=== PATIENT | male | born 1985 | race Caucasian/White ===

== ENCOUNTER 2020-06-05 17:16 | Emergency (ER) | payer BC, OTHER ==
[2020-06-05] MEDS ORDERED: Bacitracin Oint 15 GM Tube TOP ONE (18:16)
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
== END 2020-06-05 18:58 | disposition home or self-care (01) ==
LOC: JD.ED 17:16
DX: T23.191A Burn of first degree of multiple sites of right wrist and hand, initial encounter (principal); Z87.891 Personal history of nicotine dependence; X08.8XXA Exposure to other specified smoke, fire and flames, initial encounter
CPT/HCPCS: 99283; A9270; 99282

== ENCOUNTER 2020-09-02 18:52 | Emergency (ER) | payer OTHER ==
--- NOTE | 2020-09-02 19:39 | EDM.PDOC ---
ED HPI GENERAL MEDICAL PROBLEM - General Chief Complaint: Abdominal Pain Stated Complaint: PAIN MOVES FROM LOWER RIBS UP CHEST INTO SHOULDER Time Seen by Provider: 09/02/20 19:17 Source of Information: Reports: Patient History Limitations: Reports: No Limitations - History of Present Illness INITIAL COMMENTS - FREE TEXT/NARRATIVE: This is a 35-year-old male. He has been having left shoulder and left arm pain for multiple days prior to his abdominal pain. He says when he tries to move his arm laterally he gets pain in his left anterior chest. 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 About 3 days ago he had onset of slight left-sided abdominal pain that is gotten worse and worse. He did have an episode of diarrhea tonight but no nausea or vomiting. He has a history of pancreatitis back in 2018. He says then the pain was midline not in the left side. He is not certain whether the abdominal pain is really needed to his left shoulder and left arm pain. He was Covid positive in the second week of May and did his appropriate quarantine and he is not having any of those symptoms. He denies any fever chills and no cough. Left Abdominal Pain Score (Numeric/FACES): 8 - Related Data Allergies Allergy/AdvReac Type Severity Reaction Status Date / Time No Known Allergies Allergy Verified 09/02/20 19:04 Home Meds: Home Meds Dicyclomine [Bentyl] 20 mg PO TID PRN #20 tab 09/03/20 [Rx] Hydrocodone/Acetaminophen [Hydrocodon-Acetaminophen 5-325] 1 each PO Q6H PRN #12 tablet 09/03/20 [Rx] Ondansetron [Zofran] 4 mg PO Q6H PRN #15 tab 09/03/20 [Rx] Past Medical History - Past Health History Medical/Surgical History: Denies Medical/Surgical History - Infectious Disease History Infectious Disease History: Reports: Novel Coronavirus Social & Family History - Family History Family Medical History: No Pertinent Family History - Tobacco Use Tobacco Use Status *Q: Current Every Day Tobacco User Years of Tobacco use: 14 Packs/Tins Daily: 1 Month/Year Tobacco Last Used: 10/2014 - Caffeine Use Caffeine Use: Reports: Coffee - Recreational Drug Use Recreational Drug Use: No ED ROS GENERAL - Review of Systems Review Of Systems: See Below Constitutional: Denies: Fever, Chills HEENT: Reports: No Symptoms Respiratory: Denies: Shortness of Breath, Cough Cardiovascular: Reports: Chest Pain Endocrine: Reports: No Symptoms GI/Abdominal: Reports: Abdominal Pain, Diarrhea. Denies: Nausea, Vomiting : Reports: No Symptoms Musculoskeletal: Reports: No Symptoms Skin: Reports: No Symptoms Neurological: Reports: No Symptoms Psychiatric: Reports: No Symptoms Hematologic/Lymphatic: Reports: No Symptoms ED EXAM, GI/ABD - Physical Exam Exam: See Below Exam Limited By: No Limitations General Appearance: Alert, WD/WN, No Apparent Distress Eyes: Bilateral: Normal Appearance Ears: Normal External Exam Nose: Other (The patient denies any acute symptoms) Throat/Mouth: Normal Voice, No Airway Compromise Head: Normocephalic Neck: Supple Respiratory/Chest: No Respiratory Distress, Lungs Clear, Normal Breath Sounds, Other (Your chest is not particularly tender on palpation, however he when he moves his left arm laterally he complains of pain in his left anterior chest and sometimes down his arm. No obvious abnormalities are noted.) Cardiovascular: Regular Rate, Rhythm, No Murmur GI/Abdominal Exam: Soft, Other (Is tender in the left upper quadrant area on palpation but I do not feel any masses. He does not have any peritoneal irritation noted or rebound. His midline and right upper quadrant are nontender and his lower abdomen is nontender and bowel sounds are decreased.) Back Exam: Normal Inspection, Full Range of Motion Extremities: Normal Inspection, Normal Range of Motion Neurological: Alert, Oriented Psychiatric: Normal Affect, Normal Mood Skin Exam: Warm, Dry #1 Interpretation EKG Date: 09/02/20 Time: 19:40 EKG Interpretation Comments: EKG shows a normal sinus rhythm rate of 61. There is no acute ST or T wave changes there is no ischemia noted. There is a suggestion that he is got an incomplete right bundle branch block and a left anterior fascicular block. Course - Vital Signs Last Recorded V/S: Last Vital Signs Temp 98.0 F 09/02/20 19:01 Pulse 66 09/02/20 20:30 Resp 18 09/02/20 19:01 BP 122/75 09/02/20 20:30 Pulse Ox 96 09/02/20 20:30 - Orders/Labs/Meds Orders: Active Orders 24 hr Category Date Time Status EKG 12 Lead [EKG Documentation Completion] [RC] STAT Care 09/02/20 19:29 Ac tive Abdomen 1V Flat [CR] Stat Exams 09/02/20 19:29 Taken Abdomen Pelvis w Cont [CT] Stat Exams 09/02/20 21:04 Taken CXR [Chest 1V Frontal] [CR] Stat Exams 09/02/20 19:29 Taken Sodium Chloride 0.9% [Normal Saline] 1,000 ml Med 09/02/20 21:15 Active IV ASDIRECTED Sodium Chloride 0.9% [Normal Saline] 100 ml Med 09/02/20 23:00 Active IV ASDIRECTED Medication Orders Sodium Chloride (Normal Saline) 1,000 mls @ 1,000 mls/hr IV ASDIRECTED DAVID Last Admin: 09/02/20 21:12 Dose: 1,000 mls/hr Documented by: SHREE Sodium Chloride (Normal Saline) 100 mls @ 60 mls/hr IV ASDIRECTED DAVID Last Admin: 09/02/20 23:00 Dose: 60 mls/hr Documented by: JANELLE Labs: Laboratory Tests 09/02/20 09/02/20 09/02/20 Range/Units 19:40 19:40 19:40 WBC 6.91 (4.23-9.07) K/mm3 RBC 4.67 (4.63-6.08) M/mm3 Hgb 14.1 (13.7-17.5) gm/dl Hct 42.2 (40.1-51.0) % MCV 90.4 (79.0-92.2) fl MCH 30.2 (25.7-32.2) pg MCHC 33.4 (32.2-35.5) g/dl RDW Std Deviation 42.6 (35.1-43.9) fL Plt Count 286 (163-337) K/mm3 MPV 10.8 (9.4-12.3) fl Neut % (Auto) 55.9 (34.0-67.9) % Lymph % (Auto) 32.7 (21.8-53.1) % [place] % (Auto) 8.4 (5.3-12.2) % Eos % (Auto) 2.5 (0.8-7.0) Baso % (Auto) 0.4 (0.1-1.2) % Neut # (Auto) 3.86 (1.78-5.38) K/mm3 Lymph # (Auto) 2.26 (1.32-3.57) K/mm3 [place] # (Auto) 0.58 (0.30-0.82) K/mm3 Eos # (Auto) 0.17 (0.04-0.54) K/mm3 Baso # (Auto) 0.03 (0.01-0.08) K/mm3 Sodium 144 (136-145) mEq/L Potassium 3.4 L (3.5-5.1) mEq/L Chloride 105 (98-107) mEq/L Carbon Dioxide 26 (21-32) mEq/L Anion Gap 16.4 H (5-15) BUN 15 (7-18) mg/dL Creatinine 0.9 (0.7-1.3) mg/dL Est Cr Clr Drug Dosing 112.35 mL/min Estimated GFR (MDRD) > 60 (>60) mL/min BUN/Creatinine Ratio 16.7 (14-18) Glucose 96 (74-106) mg/dL Calcium 8.8 (8.5-10.1) mg/dL Total Bilirubin 0.3 (0.2-1.0) mg/dL AST 30 (15-37) U/L ALT 35 (16-63) U/L Alkaline Phosphatase 93 (46-116) U/L Troponin I < 0.017 (0.00-0.056) ng/mL C-Reactive Protein <0.2 (<1.0) mg/dL Total Protein 7.4 (6.4-8.2) g/dl Albumin 4.1 (3.4-5.0) g/dl Globulin 3.3 gm/dL Albumin/Globulin Ratio 1.2 (1-2) Amylase 68 (25-115) U/L Lipase 231 (73-393) U/L Meds: Medications Generic Name Dose Route Start Last Admin Trade Name Freq PRN Reason Stop Dose Admin Sodium Chloride 1,000 mls @ 1,000 mls/hr 09/02/20 21:15 09/02/20 21:12 Normal Saline IV 1,000 mls/hr ASDIRECTED DAVID Administration Sodium Chloride 100 mls @ 60 mls/hr 09/02/20 23:00 09/02/20 23:00 Normal Saline IV 60 mls/hr ASDIRECTED DAVID Administration Discontinued Medications Generic Name Dose Route Start Last Admin Trade Name Thomasq PRN Reason Stop Dose Admin Iopamidol 100 ml 09/02/20 22:57 09/02/20 23:00 Isovue-300 (61%) IVPUSH 09/02/20 22:58 100 ml ONETIME ONE Administration - Radiology Interpretation Free Text/Narrative:: X-ray of the abdomen does not show any acute injury abdominal pathology. X-ray of the chest does not show any acute findings. CT scan with IV contrast suggest no pancreas problems no bowel obstruction but there are some segments in the splenic flexure that show some collapsing which might be related to an early mild acute colitis. No other acute findings are noted. - Re-Assessments/Exams Free Text/Narrative Re-Assessment/Exam: 09/02/20 21:10 Spoke to the patient regarding his left upper quadrant abdominal pain. We are going to do a CT scan with IV contrast looking for pancreatitis. Even though his enzymes are not elevated he could have chronic pancreatitis with an acute flare that might not show an elevation of his enzymes. I also him regarding his EKG that was normal without acute findings and that his troponin was negative so I do not believe this chest pain that seems to bother him with movement is related to his heart. 09/03/20 00:16 His white count is normal and his C-reactive protein is normal his troponin was normal. I will place him some Bentyl and suggest a bland diet with lots of fluids and fiber. He is to follow-up with his family doctor this week for recheck. He is to return to the ER if he has marked worsening of his symptoms or develops a fever. Departure - Departure Time of Disposition: 00:19 Disposition: Home, Self-Care 01 Condition: Fair Clinical Impression: Acute colitis, Left upper quadrant abdominal pain, Atypical chest pain - Discharge Information *PRESCRIPTION DRUG MONITORING PROGRAM REVIEWED*: Yes *COPY OF PRESCRIPTION DRUG MONITORING REPORT IN PATIENT JULIANN: No Prescriptions: Dicyclomine [Bentyl] 20 mg PO TID PRN #20 tab PRN Reason: Pain Hydrocodone/Acetaminophen [Hydrocodon-Acetaminophen 5-325] 1 each PO Q6H PRN #12 tablet PRN Reason: Abdominal Pain Ondansetron [Zofran] 4 mg PO Q6H PRN #15 tab PRN Reason: Nausea Instructions: Colitis Referrals: PCP,None [Primary Care Provider] - Forms: ED Department Discharge Additional Instructions: You were seen in the ER for 2 reasons. #1 was chest pain when you would move your arm and this was found to be chest wall and musculoskeletal pain and not related to your heart since her EKG and heart enzymes were normal. #2 for left upper quadrant abdominal pain that you felt was pancreatitis but we found by CT scan that it was not pancreatitis but actually colitis or an inflammation of your colon and that left upper quadrant. The treatment for this is medicine to help with the pain and bowel spasms as well as well good hydration bland diet and lots of fiber. Normally this colitis takes several days to resolve. You will need to follow-up with your doctor this coming week for recheck and if you develop a fever while having this abdominal pain you need to return to the ER. Sepsis Event Note (ED) - Evaluation Sepsis Screening Result: No Definite Risk - Focused Exam Vital Signs: Vital Signs Temp Pulse Resp BP Pulse Ox 09/02/20 20:30 66 122/75 96 09/02/20 19:01 98.0 F 70 18 140/79 100 - My Orders Last 24 Hours: My Active Orders 09/02/20 19:29 EKG 12 Lead [EKG Documentation Completion] [RC] STAT Abdomen 1V Flat [CR] Stat CXR [Chest 1V Frontal] [CR] Stat 09/02/20 21:04 Abdomen Pelvis w Cont [CT] Stat 09/02/20 21:15 Sodium Chloride 0.9% [Normal Saline] 1,000 ml IV ASDIRECTED 09/02/20 23:00 Sodium Chloride 0.9% [Normal Saline] 100 ml IV ASDIRECTED - Assessment/Plan Last 24 Hours: My Active Orders 09/02/20 19:29 EKG 12 Lead [EKG Documentation Completion] [RC] STAT Abdomen 1V Flat [CR] Stat CXR [Chest 1V Frontal] [CR] Stat 09/02/20 21:04 Abdomen Pelvis w Cont [CT] Stat 09/02/20 21:15 Sodium Chloride 0.9% [Normal Saline] 1,000 ml IV ASDIRECTED 09/02/20 23:00 Sodium Chloride 0.9% [Normal Saline] 100 ml IV ASDIRECTED
[2020-09-02] MEDS ORDERED: Sodium Chloride 0.9% 1,000 ML IV SCH (21:15)
[2020-09-02] MEDS ORDERED: Iopamidol 612 MG/ML 100 ML Bottle IVPUSH ONE (22:57)
[2020-09-02] MEDS ORDERED: Sodium Chloride 0.9% 100 ML IV SCH (23:00)
--- NOTE | 2020-09-05 08:48 | CR ---
PROCEDURE INFORMATION: Exam: XR Chest, 1 View Exam date and time: 09/02/2020 8:02 PM Age: 35 years old Clinical indication: Left-sided chest pain; Patient HX: Left sided chest and abdomen pain onset today nki; Additional info: Prior exams scanned for your review TECHNIQUE: Imaging protocol: XR of the chest Views: 1 view. COMPARISON: No relevant prior studies available. FINDINGS: Lungs: No suspicious pulmonary nodules or areas of lung consolidation. Pleural space: Costophrenic angles are sharp. No pneumothorax. Heart/Mediastinum: Unremarkable. No cardiomegaly. Bones/joints: Age appropriate. IMPRESSION: Normal chest. Thank you for allowing us to participate in the care of your patient. Dictated and Authenticated by: Reji Roberson MD 09/02/2020 9:48 PM Central Time ([place] & [place]) [email or web address]
--- NOTE | 2020-09-05 08:50 | CR ---
PROCEDURE INFORMATION: Exam: XR Abdomen, 1 View Exam date and time: 09/02/2020 8:05 PM Age: 35 years old Clinical indication: Abdominal pain; Patient HX: Left sided pain from chest to abdomen onset today; Additional info: Prior exams scanned for your review TECHNIQUE: Imaging protocol: XR of the abdomen. Views: Frontal supine view of the abdomen. 1 View. COMPARISON: CT Abdomen Pelvis w Cont 07/24/2018 11:59 PM FINDINGS: Gastrointestinal tract: Normal. No bowel dilation. Bones/joints: Age-appropriate. IMPRESSION: 1. No sign of acute intra-abdominal pathology. 2. Findings today are commensurate with credit card clerk view from CT abdomen and pelvis July 25, 2018. Thank you for allowing us to participate in the care of your patient. Dictated and Authenticated by: Reji Roberson MD 09/02/2020 9:47 PM Central Time ([place] & [place]) [facility]
--- NOTE | 2020-09-05 09:09 | CT ---
PROCEDURE INFORMATION: Exam: CT Abdomen And Pelvis With Contrast Exam date and time: 09/02/2020 10:23 PM Age: 35 years old Clinical indication: Patient HX: Pain in left side onset today, hurts worse with breathing; Additional info: Prior reports scanned in for your review TECHNIQUE: Imaging protocol: Computed tomography of the abdomen and pelvis with intravenous contrast. Contrast material: ISOVUE 300MG; Contrast volume: 100 ml; Contrast route: INTRAVENOUS (IV); COMPARISON: CT Abdomen Pelvis w Cont 07/24/2018 11:59 PM FINDINGS: Lungs: No acute pathologic findings at lung bases. Liver: Liver is normal. Gallbladder and bile ducts: Gallbladder is normal. No biliary ductal dilation. Pancreas: Pancreas is normal. Spleen: Spleen is normal. Adrenal glands: No adrenal mass. Kidneys and ureters: Symmetric bilateral renal contrast excretion noted, into normal nondilated renal collecting systems and ureters, on delayed imaging. Right kidney is normal. Left kidney is normal. No hydronephrosis. Stomach and bowel: No bowel obstruction. No pathologic small bowel wall thickening. Oral contrast not present within stomach or bowel. Several segments of the colon are collapsed within region of splenic flexure, which could account for indeterminate and equivocal colonic wall prominence/thickening, however early mild acute colitis cannot entirely be excluded. Appendix: No evidence of acute appendicitis. Appendix not seen. Intraperitoneal space: No pneumoperitoneum. No free intraperitoneal fluid to suggest concurrent acute inflammatory process. Vasculature: No aortic aneurysm. Pelvic phleboliths. Lymph nodes: Shotty nonspecific mesenteric lymph nodes. Urinary bladder: Unremarkable urinary bladder. Reproductive: Unremarkable as visualized. Bones/joints: Pectus excavatum deformity noted as normal variant. No acute displaced fracture or osseous neoplastic lesion. Soft tissues: Unremarkable. IMPRESSION: 1. Possible early acute colitis versus incomplete distention as above. 2. Remainder of findings described as above. Thank you for allowing us to participate in the care of your patient. Dictated and Authenticated by: Boone Gutierrez MD 09/03/2020 12:28 AM Central Time ([place] & [place]) [facility]
== END 2020-09-03 00:38 | disposition home or self-care (01) ==
LOC: JD.ED 18:52
DX: K52.9 Noninfective gastroenteritis and colitis, unspecified (principal); R07.89 Other chest pain; F17.210 Nicotine dependence, cigarettes, uncomplicated
CPT/HCPCS: 36415; 71045; 74018; 74177; 80053; 82150; 83690; 84484; 85025; 86140; 93005; 99285; J7030; Q9967; 93010; 99284

== ENCOUNTER 2022-07-15 18:48 | Emergency (ER) | payer OTHER, SELFPAY ==
[2022-07-15] MEDS ORDERED: Ketorolac 30 MG/ML SDV IM ONE (21:19)
== END 2022-07-15 22:22 | disposition home or self-care (01) ==
LOC: JD.ED 18:48
DX: S20.212A Contusion of left front wall of thorax, initial encounter (principal); M79.602 Pain in left arm; Z86.16 Personal history of COVID-19; W10.8XXA Fall (on) (from) other stairs and steps, initial encounter
CPT/HCPCS: 71101; 73030; 73070; 73110; 96372; 99283; J1885; 99284